=== PATIENT | female | born 1935 | race Hispanic/Latino ===

== ENCOUNTER 2018-12-29 06:30 | Inpatient (IN) | payer MEDICARE, OTHER ==
[2018-12-26 12:01] VITALS: BMI 21.1
[2018-12-29] MEDS ORDERED: Bacitracin Zinc Ointment 30 gm TUBE ONE (06:47)
[2018-12-29] MEDS ORDERED: Thrombin 5000 UNITS/5 ML VIAL ONE (06:47)
[2018-12-29] MEDS ORDERED: Sodium Chloride 0.9% 10 ML ONE (06:47)
[2018-12-29] MEDS ORDERED: Fentanyl 100 MCG/2 ML VIAL ONE ×2 (06:51→10:04)
[2018-12-29] MEDS ORDERED: Ondansetron HCl/PF 4 MG/2 ML Vial IVP PRN (07:04)
[2018-12-29] MEDS ORDERED: Promethazine HCl 25 MG/ML VIAL IM PRN ×2 (07:04→10:06)
[2018-12-29] MEDS ORDERED: Promethazine HCl 25 MG/ML VIAL SLOW IVP PRN (07:04)
[2018-12-29 07:24] LABS: #Eosinphils 0.2 thou/uL (0.0-0.7); #Lymphocytes 1.9 thou/uL (1.20-3.40); #Monocytes 0.7 thou/uL (0.11-0.59); #Neutrophils 3.3 thou/uL (1.40-6.50); %Basophils 0.6 % (0.0-1.0); %Eosinophils 3.6 % (0.0-10.0); %Lymphocytes 30.1 % (21.0-51.0); %Monocytes 11.6 % (0.0-10.0); %Neutrophils 54.1 % (42.0-75.0); Mean Corpuscular HGB CONC 31.8 g/dL (32.0-36.0); Mean Corpuscular Hemoglobin 31.1 pg (27.0-31.0); Mean Corpuscular Volume 97.9 fL (78.0-98.0); Mean Platelet Volume 8.1 fL (7.4-10.4); Platelet Count 203 thou/uL (130-400); RBC Distribution Width 11.8 % (11.5-14.5); Red Blood Cell (RBC) Count 4.16 mill/uL (4.20-5.40); White Blood Cell (WBC) Count 6.2 thou/uL (4.8-10.8)
[2018-12-29 07:41] LABS: Anion Gap 12 mmol/L (10-20); BUN (Urea Nitrogen) 26 mg/dL (9.8-20.1); Calc. Creatinine Clearance 32 mL/min (70-130); Calcium 9.7 mg/dL (7.8-10.44); Carbon Dioxide 29 mmol/L (23-31); Chloride 103 mmol/L (98-107); Estimated GFR-MDRD 41; Glucose 97 mg/dL (83-110); Sodium 140 mmol/L (136-145)
[2018-12-29] MEDS ORDERED: Midazolam HCl 2 mg/2 ml Vial ONE (08:12)
[2018-12-29] MEDS ORDERED: hydrALAZINE 20 MG/ML VIAL ONE (09:52)
[2018-12-29] MEDS ORDERED: hydrALAZINE 20 MG/ML VIAL SLOW IVP SCH (10:00)
[2018-12-29] MEDS ORDERED: Pramipexole Di-HCl 1 MG TAB PO PRN (10:04)
[2018-12-29] MEDS ORDERED: traMADol HCl 50 MG TAB PO PRN ×2 (10:04→10:06)
[2018-12-29] MEDS ORDERED: Lorazepam 1 MG TAB PO PRN (10:04)
[2018-12-29] MEDS ORDERED: HYDROcodone/Acetaminophen 7.5/325 mg Tablet PO PRN ×2 (10:05)
[2018-12-29] MEDS ORDERED: diphenhydrAMINE 50 MG/ML VIAL IVP PRN (10:06)
[2018-12-29] MEDS ORDERED: diphenhydrAMINE 25 MG CAP PO PRN (10:06)
[2018-12-29] MEDS ORDERED: tiZANidine HCl 4 MG TAB PO PRN (10:06)
[2018-12-29] MEDS ORDERED: Milk Of Magnesia 30 ML UDCUP PO PRN (10:06)
[2018-12-29] MEDS ORDERED: HYDROcodone/Acetaminophen 10/325 mg Tablet PO PRN ×2 (10:06)
[2018-12-29] MEDS ORDERED: Mag-Al 1200 mg/1200 mg/30 ML UDCUP PO PRN (10:06)
[2018-12-29] MEDS ORDERED: Ondansetron PF 4 MG/2 ML Vial IVP PRN (10:06)
[2018-12-29] MEDS ORDERED: Promethazine 25 MG TAB PO PRN (10:06)
[2018-12-29] MEDS ORDERED: Morphine 4 MG/ML VIAL SLOW IVP PRN (10:06)
[2018-12-29] MEDS ORDERED: Morphine 2 MG/ML SYRINGE SLOW IVP PRN (10:07)
[2018-12-29] MEDS: Sodium Chloride 0.9% 1,000 ML IV SCH ×2 (11:16→22:56)
[2018-12-29] MEDS ORDERED: Bisacodyl 5 MG TAB PO PRN (14:27)
[2018-12-29] MEDS ORDERED: Nitroglycerin 0.4 MG TAB (25 Tab Bottle) SL PRN (14:27)
[2018-12-29] MEDS ORDERED: Benzonatate 100 MG CAP PO PRN (14:27)
[2018-12-29] MEDS ORDERED: Acetaminophen 650 MG Suppository PR PRN (14:27)
[2018-12-29] MEDS ORDERED: Diabetic Tussin 200 MG/10 ML UDCUP PO PRN (14:27)
[2018-12-29] MEDS ORDERED: cloNIDine 0.1 MG TAB PO PRN (14:27)
[2018-12-29] MEDS ORDERED: Senokot S 8.6-50 MG TAB PO PRN (14:27)
[2018-12-29] MEDS: CEFAZOLIN 2 GM in Premix Bag 1 BAG IVPB SCH (15:27)
[2018-12-29] MEDS: traMADol HCl 50 MG TAB PO PRN (15:28)
--- NOTE | 2018-12-29 15:56 | OP ---
DATE OF PROCEDURE: 12/29/2018 ETL APPLICATION DEVELOPER: Jurgen Covarrubias PA-C PROCEDURES PERFORMED: Anterior cervical diskectomy, C3 through C6; interbody arthrodesis, C3-C4 and C4-C5; anterior titanium instrumentation, C3 to C6; demineralized bone matrix; local morselized autograft. DESCRIPTION OF PROCEDURE: The patient was brought to the operating room and intubated. She was positioned supine in the modest extension on a gel-filled donut. Incision was made in the right precervical area and dissected medial to the sternocleidomastoid muscle, identified the anterior cervical spinal, and the level was confirmed by x-ray. We debrided the anterior osteophytes, placed distraction across the disk spaces, and completely decompressed C3-C4 and C4-C5. The C5-C6 level was largely auto fused and while we did explore the level for the purpose of arthrodesis, ultimately it could not make enough space to place an intervertebral device. Next, an anterior plate was brought into the field and secured to C3, C4, C5, and C6 using two 14-mm screws at each level. The wound was then extensively irrigated. MAC hemostasis was secured. The wound was closed in anatomic layers. Job ID: [id number]
--- NOTE | 2018-12-29 16:16 | PDOC.PN ---
- Subjective Encounter Start Date: 12/29/18 Encounter Start Time: 16:16 Subjective: s/p anterior cervical laminectomy -: feels well. was walking in [place]. some sore throat w eating -: no CP/cough/SOB.no abd pain.no dysuria/urgency.no fever/chills - Objective MAR Reviewed: Yes Vital Signs & Weight: Vital Signs (12 hours) Temp Pulse Resp BP Pulse Ox 12/29/18 11:05 97.6 F 83 20 156/73 H 97 Weight Weight 127 lb Result Diagrams: 12/29/18 07:12 12/29/18 07:12 Phys Exam - Physical Examination Constitutional: NAD HEENT: PERRLA, moist MMs, sclera anicteric, oral pharynx no lesions Neck: no nodes, no JVD, supple, full ROM Respiratory: no wheezing, no rales, no rhonchi, clear to auscultation bilateral Cardiovascular: RRR, no significant murmur Gastrointestinal: soft, non-tender, no distention, positive bowel sounds Musculoskeletal: no edema, pulses present Neurological: non-focal, normal sensation, moves all 4 limbs Psychiatric: normal affect, A&O x 3 Skin: no rash Dx/Plan (1) ZIA (acute kidney injury) Code(s): N17.9 - ACUTE KIDNEY FAILURE, UNSPECIFIED Status: Acute Comment: Hold maxzide and cont IVF.Monitor .AM labs (2) S/P laminectomy Code(s): Z98.890 - OTHER SPECIFIED POSTPROCEDURAL STATES Status: Acute (3) HTN (hypertension) Code(s): I10 - ESSENTIAL (PRIMARY) HYPERTENSION Status: Acute - Plan PT/OT, out of bed/ambulate, DVT proph w/SCDs hold amxzide and recheck Cr in morning.cont IVF for now -: avoid nephrotoxins eg toradol /NSAIDs etc -: monitor fluid status.am cbc,bmp -: pain meds,rehab per primary team -: add prn meds including antihypertensives * . Review of Systems - Review of Systems Constitutional: negative: fever, chills, sweats, weakness, malaise, other Eyes: negative: Pain, Vision Change, Conjunctivae Inflammation, Eyelid Inflammation, Redness, Other ENT: negative: Ear Pain, Ear Discharge, Nose Pain, Nose Discharge, Nose Congestion, Mouth Pain, Mouth Swelling, Throat Pain, Throat Swelling, Other Respiratory: negative: Cough, Dry, Shortness of Breath, Hemoptysis, SOB with Excertion, Pleuritic Pain, Sputum, Wheezing Cardiovascular: negative: chest pain, palpitations, orthopnea, paroxysmal nocturnal dyspnea, edema, light headedness, other Gastrointestinal: negative: Nausea, Vomiting, Abdominal Pain, Diarrhea, Constipation, Melena, Hematochezia, Other Genitourinary: negative: Dysuria, Frequency, Incontinence, Hematuria, Retention , Other Musculoskeletal: negative: Neck Pain, Shoulder Pain, Arm Pain, Back Pain, Hand Pain, Leg Pain, Foot Pain, Other Skin: negative: Rash, Lesions, Martin, Bruising, Other Neurological: negative: Weakness, Numbness, Incoordination, Change in Speech, Confusion, Seizures, Other - Medications/Allergies Allergies/Adverse Reactions: Allergies Allergy/AdvReac Type Severity Reaction Status Date / Time No Known Allergies Allergy Unverified 12/26/18 11:55 Medications: Current Medications Acetaminophen (Tylenol) 650 mg PA Q4H PRN PRN Reason: Fever > 101 Hydrocodone Bitart/Acetaminophen ([place] 10/325) 1 tab PO Q4H PRN PRN Reason: PAIN (1-3) Hydrocodone Bitart/Acetaminophen ([place] 10/325) 2 tab PO Q4H PRN PRN Reason: PAIN (4-6) Al Hydroxide/Mg Hydroxide (Maalox) 30 ml PO Q4H PRN PRN Reason: Heartburn or Indigestion Benzonatate (Tessalon) 100 mg PO Q6H PRN PRN Reason: Cough Bisacodyl (Dulcolax) 10 mg PO DAILYPRN PRN PRN Reason: Constipation Clonidine (Catapres) 0.1 mg PO Q4H PRN PRN Reason: SBP > _160___ Diphenhydramine HCl (Benadryl) 25 mg PO Q6H PRN PRN Reason: Itching Diphenhydramine HCl (Benadryl) 25 mg IVP Q6H PRN PRN Reason: Itching Guaifenesin (Robitussin Sf) 200 mg PO Q4H PRN PRN Reason: Cough Hydralazine HCl (Apresoline) 10 mg SLOW IVP Q15MIN [place] Sodium Chloride (Normal Saline 0.9%) 1,000 mls @ 75 mls/hr IV .[id number] [facility] Last Admin: 12/29/18 11:16 Dose: Not Given Cefazolin Sodium/Dextrose 2 gm (/ Device) 50 mls @ 100 mls/hr IVPB Q8H [facility] Stop: 12/30/18 00:29 Last Admin: 12/29/18 15:27 Dose: 50 mls Lorazepam (Ativan) 1 mg PO PRN PRN PRN Reason: Anxiety Magnesium Hydroxide (Milk Of Magnesium) 30 ml PO Q12H PRN PRN Reason: Constipation Metoprolol Succinate ([facility] Xl) [facility] [place] Morphine Sulfate (Morphine) 2 mg SLOW IVP Q1H PRN PRN Reason: MODERATE BREAKTHROUGH PAIN Last Admin: 12/29/18 11:30 Dose: 2 mg Morphine Sulfate (Morphine) 4 mg SLOW IVP Q1H PRN PRN Reason: SEVERE BREAKTHROUGH PAIN Nitroglycerin (Nitrostat) 0.4 mg SL Q5MIN PRN PRN Reason: Chest Pain Ondansetron HCl (Zofran) 4 mg IVP Q24H PRN PRN Reason: Nausea/Vomiting Pramipexole Dihydrochloride (Mirapex) 1 mg PO HSPRN PRN PRN Reason: DIRECTED Promethazine HCl (Phenergan) 12.5 mg IM Q4H PRN PRN Reason: Nausea/Vomiting Promethazine HCl (Phenergan) 12.5 mg PO Q4H PRN PRN Reason: Nausea/Vomiting Senna/Docusate Sodium (Senokot S) 2 tab PO BID PRN PRN Reason: Constipation Sodium Chloride (Flush - Normal Saline) 10 ml IVF Q12HR [facility] Sodium Chloride (Flush - Normal Saline) 10 ml IVF PRN PRN PRN Reason: Saline Flush Tizanidine HCl (Zanaflex) 4 mg PO Q6H PRN PRN Reason: MUSCLE SPASM Tramadol HCl (Ultram) 50 mg PO Q6H PRN PRN Reason: PAIN (1-3) Tramadol HCl (Ultram) 100 mg PO Q6H PRN PRN Reason: PAIN (4-6) Last Admin: 12/29/18 15:28 Dose: 100 mg Triamterene/HCTZ (Maxzide-25) 1 [facility] [place]
[2018-12-30] MEDS: CEFAZOLIN 2 GM in Premix Bag 1 BAG IVPB SCH (00:15)
[2018-12-30] MEDS: traMADol HCl 50 MG TAB PO PRN (05:52)
[2018-12-30 06:34] LABS: #Basophils 0.1 thou/uL (0.0-0.2); #Eosinphils 0.1 thou/uL (0.0-0.7); #Lymphocytes 2.3 thou/uL (1.20-3.40); #Neutrophils 6.3 thou/uL (1.40-6.50); %Basophils 0.7 % (0.0-1.0); %Eosinophils 0.6 % (0.0-10.0); %Lymphocytes 23.5 % (21.0-51.0); %Monocytes 10.7 % (0.0-10.0); %Neutrophils 64.5 % (42.0-75.0); Mean Corpuscular HGB CONC 32.2 g/dL (32.0-36.0); Mean Corpuscular Volume 96.2 fL (78.0-98.0); Mean Platelet Volume 8.3 fL (7.4-10.4); Platelet Count 197 thou/uL (130-400); RBC Distribution Width 11.9 % (11.5-14.5); Red Blood Cell (RBC) Count 3.86 mill/uL (4.20-5.40); White Blood Cell (WBC) Count 9.7 thou/uL (4.8-10.8)
[2018-12-30 06:58] LABS: Anion Gap 11 mmol/L (10-20); BUN (Urea Nitrogen) 21 mg/dL (9.8-20.1); Calc. Creatinine Clearance 40 mL/min (70-130); Calcium 8.7 mg/dL (7.8-10.44); Carbon Dioxide 26 mmol/L (23-31); Chloride 106 mmol/L (98-107); Estimated GFR-MDRD 53; Glucose 92 mg/dL (83-110); Potassium 4.1 mmol/L (3.5-5.1); Sodium 139 mmol/L (136-145)
[2018-12-30] MEDS ORDERED: Triamterene/Hydrochlorothiazide 37.5 mg/25 mg Tablet PO SCH (09:00)
--- NOTE | 2018-12-30 10:24 | DIS ---
DATE OF ADMISSION: 12/29/2018 DATE OF DISCHARGE: 12/30/2018 HOSPITAL COURSE: The patient is an 83-year-old female status post C3-C6 ACDF. Following the surgery, she was transitioned to the Med/Surg floor, where her pain has been well-controlled with p.o. medications. She has been tolerating a regular diet. She has been voiding appropriately. She has been up ambulating easily throughout the department. She has had no incisional drainage issues. On exam this morning, she is awake, alert, and comfortable. She has free active range of motion of all extremities. No focal motor weakness or reflex asymmetry. Her dressing is dry. We will plan to dismiss the patient to home. I have discussed home care. We will arrange home health physical therapy and nursing upon dismissal and Case Management will assist. Job ID: [id number]
[2018-12-30 12:30] VITALS: BP 150/64; TEMP 97.4
[2018-12-30] MEDS: Sodium Chloride 0.9% 1,000 ML IV SCH (13:59)
== END 2018-12-30 15:39 | disposition home or self-care (01) | DRG 472 ==
LOC: SURG A 06:30 → SURG B 10:49
PROVIDERS: ADMIT Neurological Surgery; ATTEND Neurological Surgery
PROC: 0RG20A0 Fusion of 2 or more Cervical Vertebral Joints with Interbody Fusion Device, Anterior Approach, Anterior Column, Open Approach (ICD-10-PCS; principal; 2018-12-29)
PROC: 0RB30ZZ Excision of Cervical Vertebral Disc, Open Approach (ICD-10-PCS; 2018-12-29)
DX: M50.11 Cervical disc disorder with radiculopathy, high cervical region (principal); N17.9 Acute kidney failure, unspecified; M43.12 Spondylolisthesis, cervical region; I10 Essential (primary) hypertension; M19.90 Unspecified osteoarthritis, unspecified site
CPT/HCPCS: 36415; 76000; 80048; 85025; 93005; 93010; C1713; C1776; J0360; J0690; J2250; J2270; J3010; J3490